=== PATIENT | male | born 1955 | race Caucasian/White ===

== ENCOUNTER 2023-06-07 07:46 | Outpatient (OUT) | payer MEDICARE, SELFPAY ==
--- NOTE | 2023-06-07 08:06 | ECG_ITS ---
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
[2023-06-07 08:52] LABS: Basophils Absolute Auto 0.1 10^3/uL (0.0-0.1); Basophils Percent Auto 1.1 % (0.2-2.0); Eosinophils Absolute Auto 0.2 10^3/uL (0.0-0.7); Eosinophils Percent Auto 2.7 % (0.9-7.0); Hematocrit 40.1 % (42.0-54.0); Hemoglobin 13.5 g/dL (14.0-18.0); Immature Granulocytes Abs Auto 0.14 10^3/uL (0.00-0.03); Immature Granulocytes Pct Auto 1.9 % (0.0-0.5); Lymphocytes Absolute Auto 1.6 10^3/uL (1.2-3.8); Lymphocytes Percent Auto 22.3 % (20.5-60.0); Mean Corpuscular HGB Conc 33.7 g/dL (29.9-35.2); Mean Corpuscular Hemoglobin 29.9 pg (25.9-34.0); Mean Corpuscular Volume 88.9 fL (80.0-94.0); Mean Platelet Volume 10.4 fL (9.5-13.5); Monocytes Absolute Auto 0.9 10^3/uL (0.3-0.8); Monocytes Percent Auto 12.8 % (1.7-12.0); Neutrophils Absolute Auto 4.4 10^3/uL (1.4-6.5); Neutrophils Percent Auto 59.2 % (43.0-75.0); Platelet Count 224 10^3/uL (150-450); Red Blood Count 4.51 10^6/uL (4.70-6.10); Red Cell Distribution Width 12.9 % (11.0-15.0); White Blood Count 7.4 10^3/uL (4.0-11.0)
[2023-06-07 09:10] LABS: Partial Thromboplastin Time 26.8 sec (22.3-36.2); Prothrombin Time 9.3 sec (9.0-11.6)
[2023-06-07 09:18] LABS: INR <0.93
[2023-06-07 09:20] LABS: Anion Gap 13.1; BUN Creatinine Ratio 15.7; Calcium 10.7 mg/dL (8.5-10.1); Carbon Dioxide 23.3 mmol/L (21.0-32.0); Chloride 106 mmol/L (98-107); Estimated GFR (African America >60 (>=60); Estimated GFR (Non-African Ame >60 (>=60); Glucose 103 mg/dL (74-106); Potassium 4.4 mmol/L (3.5-5.1); Sodium 138 mmol/L (136-145)
== END 2023-06-07 07:47 | disposition home or self-care (01) ==
LOC: PST 07:50
PROVIDERS: PCP Nurse Practitioner Family; Visit Provider Urology
DX: Z01.810 Encounter for preprocedural cardiovascular examination (principal); Z01.812 Encounter for preprocedural laboratory examination; N13.2 Hydronephrosis with renal and ureteral calculous obstruction; M19.90 Unspecified osteoarthritis, unspecified site; E78.00 Pure hypercholesterolemia, unspecified; R91.8 Other nonspecific abnormal finding of lung field; I10 Essential (primary) hypertension
CPT/HCPCS: 80048; 85025; 85610; 85730; 93005

== ENCOUNTER 2023-06-10 06:51 | Day surgery (SDC) | payer MEDICARE, SELFPAY ==
[2023-06-07 08:34] VITALS: BP 138/87; PULSE 76; RESP 14; TEMP 36.4; O2SAT 95; BMI 29.6
[2023-06-10] VITALS (13 sets, daily range): BP systolic 89–139; BP diastolic 55–76; PULSE 46–75; RESP 10–18; TEMP 35.9–36; O2SAT 91–98; BMI 29.6
[2023-06-10] MEDS: LACTATED RINGER'S SOLUTION 1,000 ML 50 ML IV (07:18)
[2023-06-10] MEDS: CEFAZOLIN SODIUM/DEXTROSE,ISO 1 GM/50 ML IV.SOLN IV (07:54)
--- NOTE | 2023-06-10 09:44 | PM.URSON ---
Urology Surgery Operative Note Operative Note Procedure Date: 06/10/23 Time Out Performed: yes Pre-op Diagnosis: Obstructing large right renal pelvis stone and ipsilateral renal calculus. Post-op Diagnosis: same as pre-op Procedures performed: #1. Cystoscopy. #2. Right rigid ureteral dilation. #3. Right ureteroscopy. #4. Right pyeloscopy. #5. Holmium laser lithotripsy of large right renal stone burden. #6. Stone basket extraction from right kidney. #7. Placement of 6 Indonesian variable length right ureteral stent Anesthesia: CHRISTOPHER Primary Surgeon: Angel Dial Complications: non- Estimated blood loss (mL): 5 Findings: large right renal pelvis stone and ipsilateral lower pole calculi Specimens: right renal stone fragments Drains: 6 Indonesian variable length right ureteral stent Indications for Procedures: this gentleman was found to have a 1.8 cm right renal pelvis stone by CT scan causing ipsilateral hydroureteronephrosis. He also has a ipsilateral right renal stone that is 6 mm. He now presents for cystoscopy ureteroscopy laser lithotripsy and stent placement. He has signed an informed consent after all risks were explained. Detailed description of Procedure: The patient was brought to the operating room and placed on the operating room table in the supine position. SCDs were placed on the lower extremities and turned on and functioning during the entire case. Timeout was done by all parties in the room. We all agreed upon the patient's identification and the planned procedures for this patient. Genn. anesthesia was then administered. The patient was then repositioned into the modified dorsal lithotomy position. All pressure points were satisfactorily padded. Genitalia were sterilely prepped and draped in usual fashion.I started by passing a 22 Indonesian Olympus cystoscope per urethra and into the bladder. The anterior urethra was normal aside from a minor narrowing at the bulb. Prostatic urethra showed bilobar obstruction. Careful panendoscopy in the bladder showed no evidence of any tumors or stones. I then passed a Glidewire through the scope and cannulated the right ureter. I was able to get the wire up to the stone. The wire buckled numerous times until I got beyond the stone and into the rest of the kidney. An 8 and 10 Indonesian rigid dilator was used to dilate the distal ureter. The scope was then removed. A navigator 06/28 ureteral access sheath was then passed over the wire and the distal ureter was further dilated. She went up to the L3 level. The wire and stylette were then removed. I then passed a flexible ureteroscope through the access sheath and into the ureter. I then ascended up the ureter and got into the renal pelvis. I arrived at a very large irregular yellow and brown stone. A 272 ? holmium laser fiber was passed through the scope and made contact with the stone. I then did laser lithotripsy 1st at 8 W continuously then at 10 W continuously on the duct Sting mode. We weree firing continuous pulses for over a solid our. The stone was entirely dusted. The 0 tip nitinol basket was used to grasp any tiny pieces and these were extracted out and sent for stone analysis. 2nd stone was found in the lower pole of the kidney. This similarly was dusted. Upon completion there was no radiographic visibility of any formed stone remaining. Copious amounts of sand dust and tiny gravel pieces were noted throughout the renal pelvis and lower pole and midpole calyces. The scope was then removed. I then passed a Glidewire through the sheath into the kidney and removed the access sheath. The cystoscope was then backloaded over the wire and passed into the bladder. I then slid a 6 Indonesian variable length ureteral stent over the wire up into the kidney. The wire was removed and there were good curls in the kidney and in the bladder. The bladder was drained of its contents and the scope was then removed. The anesthetic was then reversed. He was then transferred to a [facility] bed and wheeled to PACU in stable condition. He'll be discharged to home later today with a prescription for Vesicare 10 mg daily #20 and Keflex grams twice a day #20. The stent will get removed in a week or 2.
--- NOTE | 2023-06-10 10:03 | PC.NURSE ---
Suctioned orally without results; moist respirations noted
--- NOTE | 2023-06-10 10:11 | PC.NURSE ---
Has the urge to void; given urinal and voided scant amount pink urine without clots; urineal remains in place
[2023-06-10] MEDS: HYDROMORPHONE HCL 0.5 MG/0.5 ML SYRINGE 0.4 MG IV (10:21)
[2023-06-10] MEDS: LACTATED RINGER'S SOLUTION 1,000 ML 75 ML IV (10:24)
--- NOTE | 2023-06-10 10:40 | PC.NURSE ---
Medicated with Dilaudid IV for pain
[2023-06-10] MEDS: SOLIFENACIN SUCCINATE 10 MG TABLET PO (10:50)
[2023-06-17 21:08] LABS: Calcium Oxalate Monohydrate 100 % (.)
== END 2023-06-10 11:42 | disposition home or self-care (01) ==
PROVIDERS: PCP Nurse Practitioner Family; Visit Provider Urology
PROC: (CPT 52356; principal; 2023-06-10 08:00)
DX: N13.2 Hydronephrosis with renal and ureteral calculous obstruction (principal); M19.90 Unspecified osteoarthritis, unspecified site; E78.00 Pure hypercholesterolemia, unspecified; R91.1 Solitary pulmonary nodule; I10 Essential (primary) hypertension; Z87.442 Personal history of urinary calculi; Z87.891 Personal history of nicotine dependence
CPT/HCPCS: 52356; 36415; 76000; 82365; 99999; C1874; J1170; J2704